=== PATIENT | female | born 1950 | race Caucasian/White ===

== ENCOUNTER 2018-07-31 12:42 | Emergency (ER) | payer BC, SELFPAY ==
[2018-07-31 13:00] VITALS: BP 131/88; PULSE 63; RESP 16; TEMP 36.2; O2SAT 95; BMI 38.0
--- NOTE | 2018-07-31 13:19 | ED_ITS ---
HPI - Arrhythmia/Palpitations General Chief Complaint: Arrhythmia/Palpitations Stated Complaint: THINKS IN AFIB Time Seen by Provider: 07/31/18 13:13 Source: patient Mode of arrival: ambulatory Limitations: no limitations History of Present Illness HPI narrative: Patient is a 67-year-old female who presents with sudden-onset dizziness. She said she was at work or at the store when she felt sudden onset dizziness she had some heart palpitations and some nausea. She went to the walk -in clinic and was sent to the ED for further evaluation. He says the dizziness is only when she stands up to move. Sitting and resting she feels okay. She has some trouble remembering things she was just at the walk-in clinic she can't really remember what he said. She says that she is having difficulty getting words out although she is speaking fluently now. She has no unilateral weakness no visual changes no facial drooping no slurring of speech. Related Data Home Medications Medication Instructions Recorded Confirmed ibuprofen 800 mg PO BID PRN 07/31/18 07/31/18 Previous Rx's Medication Instructions Recorded meclizine 25 mg PO BID-TID PRN #10 tab 07/31/18 ondansetron HCl [Zofran] 4 mg PO Q6-8H PRN #10 tab 07/31/18 Allergies Allergy/AdvReac Type Severity Reaction Status Date / Time meperidine [From Demerol] Allergy Severe stopped Verified 07/31/18 13:28 breathing Sulfa (Sulfonamide Allergy Severe Rash Verified 07/31/18 13:28 Antibiotics) Review of Systems Review of Systems All systems reviewed & are unremarkable except as noted in HPI and below Constitutional Denies chills, Denies fever(s), Denies lethargy and Denies weakness ENT Ears, Nose, Mouth, and Throat: Reports vertigo and Reports dizziness Cardiovascular Denies chest pain, Denies irregular heart rhythm, Reports lightheadedness, Reports palpitations, Denies dyspnea, Denies dyspnea on exertion and Denies orthopnea Respiratory Denies cough, Denies dyspnea, Denies dyspnea on exertion and Denies wheezing Gastrointestinal Gastrointestinal: Denies abdominal pain, Denies change in bowel habits, Denies diarrhea, Denies nausea and Denies vomiting Musculoskeletal Denies back pain, Denies muscle weakness, Denies numbness and Denies tingling Integumentary/Breasts Denies pruritus, Denies erythema, Denies rash and Denies wounds Neurologic Reports vertigo, Reports dizziness, Denies numbness, Denies tingling and Denies weakness Endocrine Reports palpitations Allergic/Immunologic Denies wheezing [facility] Social History Smoking Status: Never smoker Exam Initial Vital Signs Initial Vital Signs: Vital Signs Temperature 97.2 F L 07/31/18 13:00 Pulse Rate 63 07/31/18 13:00 Respiratory Rate 16 07/31/18 13:00 Blood Pressure 131/88 07/31/18 13:00 Pulse Oximetry 95 07/31/18 13:00 GENERAL: Well-appearing, well-nourished and in no acute distress. HEENT: Head atraumatic,EOMI, pupils reactive, face symmetric, CARDIOVASCULAR: Regular rate and rhythm without murmurs, rubs or gallops. RESPIRATORY: Breath sounds equal bilaterally, no wheezes rales or rhonchi. ABDOMEN: Soft, nontender. Normoactive bowel sounds all 4 quadrants. No guarding or rebound. EXTREMITIES: Normal range of motion, no clubbing or edema. Neurovascularly intact. Mild pain in left thigh but full range of motion at hip and knee no sign of trauma strong distal pedal pulse NEUROLOGICAL: Alert and oriented x4.Normal gait and speech. Cranial nerves II through XII grossly intact. Good plqtge-[id number], good kpoj-nk-[id number], strength equal bilaterally, no dysarthria or aphasia, sensation in tact to soft touch bilaterally, no visual changes, no facial droop, no dysarthria and no aphasia SKIN: Warm, dry, no laceration, no petechiae, no rashes or lesions. Scores NIH Stroke Scale Level of Conciousness: Alert, keenly responsive Ask month/age: Answers both questions correctly. Open/close eyes, close hand: Performs both tasks correctly Best gaze horizontal: Normal Visual porter: No visual loss Facial palsy: Normal symetrical movement Left arm drift: No drift for full 10 sec Right arm drift: No drift for full 10 sec Left leg drift: No drift for full 10 sec Right leg drift: No drift for full 10 sec Limb ataxia: Absent Sensory on face/arms/legs: Normal, no sensory loss Best language: No aphasia, normal Dysarthria: Normal Extinction or inattention: No abnormality Total NIH Stroke scale score: 0 Course Orders Ordered: ED Orders 09/11/18 13:23 Complete Blood Count AUTO DIFF Stat Comprehensive Metabolic Panel Stat Troponin & CK Cardiac Panel Stat 07/31/18 13:34 CT head/brain wo con Stat 07/31/18 15:50 Urine Microscopic Stat 07/31/18 15:54 CT angio head and neck Stat Sodium Chloride (Normal Saline 0.9%) 1,000 mls @ 150 mls/hr IV CONT BR[place] Last Infusion: 07/31/18 15:47 Dose: 0 mls/hr Admin: 07/31/18 14:47 Dose: 150 mls/hr Discontinued Medications Aspirin (Aspirin) 325 mg PO NOW ONE Stop: 07/31/18 13:20 Last Admin: 07/31/18 14:49 Dose: 325 mg Ketorolac Tromethamine (Toradol) 30 mg IV NOW ONE Stop: 07/31/18 14:40 Last Admin: 07/31/18 14:48 Dose: 30 mg Meclizine HCl (Antivert) 25 mg PO NOW ONE Stop: 07/31/18 13:20 Last Admin: 07/31/18 14:49 Dose: 25 mg Ondansetron HCl (Zofran) 4 mg IV NOW ONE Stop: 07/31/18 13:20 Last Admin: 07/31/18 14:48 Dose: 4 mg Vital Signs - 8 hr 07/31/18 13:00 07/31/18 13:23 07/31/18 14:30 Temperature 97.2 F L 97.2 F L Pulse Rate 63 63 58 L Respiratory Rate 16 16 17 Blood Pressure 131/88 Blood Pressure [Left Arm] 131/93 H 139/78 Pulse Oximetry 95 95 97 07/31/18 16:00 07/31/18 17:18 Temperature Pulse Rate 55 L Respiratory Rate 18 Blood Pressure Blood Pressure [Left Arm] 135/54 L 120/62 Pulse Oximetry 96 MDM - Arrhythmia/Palpitations Lab Data Attestation: I reviewed the patient's lab results. Result diagrams: 07/31/18 13:23 07/31/18 13:23 Lab Results 07/31/18 07/31/18 07/31/18 Range/Units 13:23 13:23 15:50 WBC 10.0 (4.5-11.0) X10^3/uL RBC 5.17 (4.0-5.2) X10^6/uL Hgb 15.5 (12.0-16.0) g/dL Hct 45.0 (36-46) % MCV 87.0 (80-100) fL MCH 29.9 (26-34) PG MCHC 34.4 (30-36) % RDW 13.7 (11.6-14.8) % Plt Count 232 (150-400) X10^3/uL Neut % (Auto) 74.4 (50-75) % Lymph % (Auto) 15.4 L (25-40) % Ball[place] % (Auto) 7.6 (3-14) % Eos % (Auto) 1.2 L (2-4) % Baso % (Auto) 1.4 (0-2) % Neut # (Auto) 7400 H (7227-6760) /uL Sodium 146 H (137-145) mmol/L Potassium 4.2 (3.4-5.1) mmol/L Chloride 104 (98-107) mmol/L Carbon Dioxide 30 (22-32) mmol/L BUN 20 H (7-17) mg/dL Creatinine 1.00 (0.52-1.04) mg/dL Estimated GFR 55.5 L (>60) mL/min BUN/Creatinine Ratio 20.0 (6-22) Glucose 105 (80-110) mg/dL Calcium 9.5 (8.4-10.2) mg/dL Total Bilirubin 1.1 (0.2-1.3) mg/dL AST 29 (14-36) IU/L ALT 26 (9-52) IU/L Alkaline Phosphatase 87 (38-126) U/L Total Creatine Kinase 139 H (30-135) U/L CK-MB (CK-2) 3.40 H (<2.37) ng/mL CK-MB (CK-2) Rel Index 2.4 (1.5-5.0) % Troponin I < 0.012 (0.01-0.034) ng/mL Total Protein 7.7 (6.3-8.2) g/dL Albumin 4.5 (3.5-5.0) g/dL Globulin 3.2 (1.7-4.1) g/dL Albumin/Globulin Ratio 1.4 (1.0-2.8) Urine RBC None seen (0-5/HPF) Urine WBC 0-1/hpf (0-5/HPF) Ur Squamous Epith Cells 0-1 /hpf Urine Bacteria None seen (None) Ur Culture Indicated? Not Reportable Micro UA Comment Not Reportable Urine Dip Bedside Urine Glucose Negative Bedside Urine Bilirubin - Negative Bedside Urine Ketone +/- 5 Urine Specific Hope 1.025 Bedside Urine Occult Blood - Negative Bedside Urine pH 6.0 Bedside Urine Protein +/- 15 Bedside Urine Urobilinogen +/- 1mg Bedside Urine Nitrite - Negative Bedside Urine Leukocytes - Negative Esterase Imaging Data CT scan - abdomen: Radiologist's impression: PROCEDURE: CT HEAD/BRAIN WO CON INDICATIONS: dizzy confusion TECHNIQUE: Noncontrast 4.5 mm thick angled axial sections acquired from the foramen magnum to the vertex, with coronal and sagittal reformats. For radiation dose reduction, the following was used: automated exposure control, adjustment of mA and/or kV according to patient size. COMPARISON: None. FINDINGS: Image quality: Excellent. CSF spaces: Basal cisterns are patent. No extra-axial fluid collections. The ventricles are symmetric in size and shape. Brain: No intracranial bleeds or masses. There is cerebral volume loss for age , with resultant ventricular and sulcal prominence. There are periventricular and deep white matter chronic small vessel ischemic changes. There is intracranial internal carotid artery atherosclerosis. Skull and face: Calvarium and visualized facial bones appear intact, without suspicious lesions. Sinuses: Visualized sinuses and mastoids are clear. IMPRESSION: Unremarkable imaging examination for age. No acute intracranial hemorrhage. No noncontrast CT findings of acute stroke are seen. Dictated by: Syed Adames M.D. on 07/31/2018 at 12:43 CTA Head: Radiologist's impression: PROCEDURE: CT ANGIO HEAD AND NECK INDICATIONS: persistant dizzy TECHNIQUE: Pre-contrast 4.5 mm thick sections acquired from the foramen magnum to the vertex. After the administration of intravenous contrast, 1 mm thick sections acquired from the aortic arch through the [place]. Post-contrast 4.5 mm thick sections then re- acquired from the foramen magnum to the vertex. 3-dimensional maximum-intensity- projection (MIP) and/or volume rendering reformats were acquired of the central intracranial vasculature and neck separately. COMPARISON: [facility], CT, CT HEAD/BRAIN WO CON, 07/31/2018, 13:27. FINDINGS: Image quality: Excellent. BRAIN: CSF spaces: Ventricles are normal in size and shape. Basal cisterns are patent. No extra-axial fluid collections. Brain: No midline shift. No intracranial bleeds or masses. Pope-white matter interface appears intact. Small air locules noted in the anterior and right margin of the prepontine cistern likely represents air in the vein. Skull and face: Calvarium and facial bones appear intact, without suspicious lesions. Orbits appear normal. Sinuses: Mucosal thickening noted in the floor of the right maxillary sinus. The mastoids are clear. HEAD CT ANGIOGRAPHY: Anterior circulation: Intracranial internal carotid arteries are normal in size and flow. The flow within the paired anterior cerebral arteries is normal and symmetric. The flow within the middle cerebral arteries is normal and symmetric. The anterior communicating artery is seen. No aneurysms are seen. Posterior circulation: Visualized portions of the vertebral arteries demonstrate normal caliber, and join to form a normal appearing basilar artery. Flow within the posterior cerebral arteries is normal and symmetric. No aneurysms are seen. NECK CT ANGIOGRAPHY: Carotid system: The great vessels demonstrate a conventional anatomy as they arise from the aortic arch. The origins of the common carotid arteries appear patent. The common carotid arteries demonstrate normal caliber and courses. Atherosclerotic calcifications noted in the origins of the internal carotid arteries which causes less than 50 % stenosis of the vessels. Posterior circulation: The origins of the vertebral arteries both appear widely patent. The more superior extracranial portions of both vertebral arteries also demonstrate normal courses and calibers. They join to form a normal appearing basilar artery. Soft tissues: Visualized neck soft tissues demonstrate no suspicious abnormalities. Thin-walled, 1.3 cm cyst noted in the apex of the left lung. 2.3 cm partially calcified hypoattenuating nodule noted in left lobe of thyroid gland. 1 cm partially calcified nodule noted in the right lobe of the thyroid gland. Bones: No suspicious bony lesions. Spine degenerative disc disease and facet arthropathy. Visualized cervical spine appears normally aligned. IMPRESSION: 1. No acute intracranial disease process. 2. No large vessel occlusion, hemodynamically significant stenosis, dissection or cerebral aneurysm. 3. Thyroid nodules. Recommend thyroid ultrasound for definitive characterization. Any quantitative measurements of stenosis were performed using NASCET criteria. Dictated by: Jennifer Segura MD, PhD on 07/31/2018 at 16:37 ECG Data Attestation: I personally reviewed and interpreted this ECG as follows: Prior ECG tracings: not available for review Interpretation: Normal sinus rhythm rate 59 T-wave inversion noted in lead [address] elevations no priors to compare left anterior fascicular block MDM Narrative Medical decision making narrative: Patient was ambulatory to the restroom she felt extremely dizzy and better when she down. This is similar to of benign paroxysmal positional vertigo however patient is still symptomatic. Will get CTA. CTA is negative think symptoms are consistent with vertigo. Patient overall feels a little bit better all. Discharge Plan Departure Patient Disposition: Home Clinical Impression: Benign paroxysmal positional vertigo Discharge Date/Time: 07/31/18 17:29 Instructions: DI for Benign Paroxysmal Positional Vertigo Activity Restrictions/Additional Instructions: *You have been diagnosed with benign paroxysmal positional vertigo *What to do: Dizziness should improve, of sleep rest, drink fluids, if no improvement may need to see a specialist ENT physician *Continue to take medications as directed fax to [facility] in [place] Meclizine 2-3 times daily if needed for dizziness Zofran 4 mg every 6 8 hr as needed for nausea vomiting *Follow up with your primary care provider in 2-3 days *Return to ER if you should have worsening dizziness, weakness, difficulty speaking, facial droop, inability to walk or any new, worsening or concerning symptoms Prescriptions: New ondansetron HCl [Zofran] 4 mg tablet 4 mg PO Q6-8H PRN (Reason: nausea and vomiting) Qty: 10 RF: 0 meclizine 25 mg tablet 25 mg PO BID-TID PRN (Reason: dizziness) Qty: 10 RF: 0 No Action ibuprofen 800 mg Tablet 800 mg PO BID PRN (Reason: arthritis pain) RF: 0 Referrals: Kaitlynn [place] PA-C [Primary Care Provider] -
[2018-07-31 13:23] VITALS: BP 131/93; PULSE 63; RESP 16; TEMP 36.2; O2SAT 95
[2018-07-31 13:27] LABS: Add Manual Diff / Slide Review NO; Basophils Percent Auto 1.4 % (0-2); Eosinophils Percent Auto 1.2 % (2-4); Hemoglobin 15.5 g/dL (12.0-16.0); Lymphocytes Percent Auto 15.4 % (25-40); Mean Corpuscular HGB Conc 34.4 % (30-36); Mean Corpuscular Hemoglobin 29.9 PG (26-34); Monocytes Percent Auto 7.6 % (3-14); Neutrophils Absolute Auto 7400 /uL (3000-5900); Neutrophils Percent Auto 74.4 % (50-75); Platelet Count 232 X10^3/uL (150-400); Red Blood Cell Count 5.17 X10^6/uL (4.0-5.2); Red Cell Distribution Width 13.7 % (11.6-14.8)
[2018-07-31 13:32] LABS: Alanine Aminotransferase 26 IU/L (9-52); Albumin 4.5 g/dL (3.5-5.0); Albumin Globulin Ratio 1.4 (1.0-2.8); Alkaline Phosphatase 87 U/L (38-126); Aspartate Aminotransferase 29 IU/L (14-36); Bilirubin Total 1.1 mg/dL (0.2-1.3); Blood Urea Nitrogen 20 mg/dL (7-17); Calcium 9.5 mg/dL (8.4-10.2); Carbon Dioxide 30 mmol/L (22-32); Chloride 104 mmol/L (98-107); Creatine Kinase 139 U/L (30-135); Estimated Glomerular Filt Rate 55.5 mL/min (>60); Globulin 3.2 g/dL (1.7-4.1); Glucose 105 mg/dL (80-110); Potassium 4.2 mmol/L (3.4-5.1); Sodium 146 mmol/L (137-145); Total Protein 7.7 g/dL (6.3-8.2)
[2018-07-31 13:33] LABS: HEMOLYSIS 60 (0-50)
--- NOTE | 2018-07-31 13:34 | DI.CT.S_ITS ---
PROCEDURE: CT HEAD/BRAIN WO CON INDICATIONS: dizzy confusion TECHNIQUE: Noncontrast 4.5 mm thick angled axial sections acquired from the foramen magnum to the vertex, with coronal and sagittal reformats. For radiation dose reduction, the following was used: automated exposure control, adjustment of mA and/or kV according to patient size. COMPARISON: None. FINDINGS: Image quality: Excellent. CSF spaces: Basal cisterns are patent. No extra-axial fluid collections. The ventricles are symmetric in size and shape. Brain: No intracranial bleeds or masses. There is cerebral volume loss for age, with resultant ventricular and sulcal prominence. There are periventricular and deep white matter chronic small vessel ischemic changes. There is intracranial internal carotid artery atherosclerosis. Skull and face: Calvarium and visualized facial bones appear intact, without suspicious lesions. Sinuses: Visualized sinuses and mastoids are clear. IMPRESSION: Unremarkable imaging examination for age. No acute intracranial hemorrhage. No noncontrast CT findings of acute stroke are seen. Dictated by: Syed Adames M.D. on 07/31/2018 at 12:43 Approved by: Syed Adames M.D. on 07/31/2018 at 12:45
[2018-07-31 13:47] LABS: CKMB % Relative Index 2.4 % (1.5-5.0)
[2018-07-31 13:51] LABS: Troponin I < 0.012 ng/mL (0.01-0.034)
[2018-07-31 14:30] VITALS: BP 139/78; PULSE 58; RESP 17; O2SAT 97
[2018-07-31] MEDS: SODIUM CHLORIDE 0.9% 1,000 ML 150 ML IV (14:47)
[2018-07-31] MEDS: ONDANSETRON 4 MG/2 ML INJ IV (14:48)
[2018-07-31] MEDS: KETOROLAC 60 MG/2 ML VIAL 30 MG IV (14:48)
[2018-07-31] MEDS: ASPIRIN 325 MG TABLET PO (14:49)
[2018-07-31] MEDS: MECLIZINE HCL 12.5 MG TABLET 25 MG PO (14:49)
--- NOTE | 2018-07-31 15:49 | PC.NURSE ---
Patient dizzy with ambulation;
--- NOTE | 2018-07-31 15:54 | DI.CT.S_ITS ---
PROCEDURE: CT ANGIO HEAD AND NECK INDICATIONS: persistant dizzy TECHNIQUE: Pre-contrast 4.5 mm thick sections acquired from the foramen magnum to the vertex. After the administration of intravenous contrast, 1 mm thick sections acquired from the aortic arch through the [place] of [place]. Post-contrast 4.5 mm thick sections then re-acquired from the foramen magnum to the vertex. 3-dimensional jmuyolx-lijqtqffq-bcxpfvethe (MIP) and/or volume rendering reformats were acquired of the central intracranial vasculature and neck separately. COMPARISON: [facility], CT, CT HEAD/BRAIN WO CON, 07/31/2018, 13:27. FINDINGS: Image quality: Excellent. BRAIN: CSF spaces: Ventricles are normal in size and shape. Basal cisterns are patent. No extra-axial fluid collections. Brain: No midline shift. No intracranial bleeds or masses. Pope-white matter interface appears intact. Small air locules noted in the anterior and right margin of the prepontine cistern likely represents air in the vein. Skull and face: Calvarium and facial bones appear intact, without suspicious lesions. Orbits appear normal. Sinuses: Mucosal thickening noted in the floor of the right maxillary sinus. The mastoids are clear. HEAD CT ANGIOGRAPHY: Anterior circulation: Intracranial internal carotid arteries are normal in size and flow. The flow within the paired anterior cerebral arteries is normal and symmetric. The flow within the middle cerebral arteries is normal and symmetric. The anterior communicating artery is seen. No aneurysms are seen. Posterior circulation: Visualized portions of the vertebral arteries demonstrate normal caliber, and join to form a normal appearing basilar artery. Flow within the posterior cerebral arteries is normal and symmetric. No aneurysms are seen. NECK CT ANGIOGRAPHY: Carotid system: The great vessels demonstrate a conventional anatomy as they arise from the aortic arch. The origins of the common carotid arteries appear patent. The common carotid arteries demonstrate normal caliber and courses. Atherosclerotic calcifications noted in the origins of the internal carotid arteries which causes less than 50% stenosis of the vessels. Posterior circulation: The origins of the vertebral arteries both appear widely patent. The more superior extracranial portions of both vertebral arteries also demonstrate normal courses and calibers. They join to form a normal appearing basilar artery. Soft tissues: Visualized neck soft tissues demonstrate no suspicious abnormalities. Thin-walled, 1.3 cm cyst noted in the apex of the left lung. 2.3 cm partially calcified hypoattenuating nodule noted in left lobe of thyroid gland. 1 cm partially calcified nodule noted in the right lobe of the thyroid gland. Bones: No suspicious bony lesions. Spine degenerative disc disease and facet arthropathy. Visualized cervical spine appears normally aligned. IMPRESSION: 1. No acute intracranial disease process. 2. No large vessel occlusion, hemodynamically significant stenosis, dissection or cerebral aneurysm. 3. Thyroid nodules. Recommend thyroid ultrasound for definitive characterization. Any quantitative measurements of stenosis were performed using NASCET criteria. Dictated by: Jennifer Segura MD, PhD on 07/31/2018 at 16:37 Approved by: Jennifer Segura MD, PhD on 07/31/2018 at 16:48
[2018-07-31 16:00] VITALS: BP 135/54; RESP 18
[2018-07-31 16:22] LABS: Bacteria Urine None Seen; RBC Urine None Seen (0-5/HPF)
[2018-07-31 16:23] LABS: Squamous Epithelial Cell Urine 0-1 /HPF; WBC Urine 0-1/HPF (0-5/HPF)
--- NOTE | 2018-07-31 17:11 | PC.NURSE ---
No sensation deficit noted; Patient with sudden on-set of dizziness, weakness, and trouble concentrating
[2018-07-31 17:18] VITALS: BP 120/62; PULSE 55; O2SAT 96
== END 2018-07-31 17:29 | disposition home or self-care (01) ==
PROVIDERS: Emergency Provider Emergency Medicine; PCP Physician Assistant
DX: H81.10 Benign paroxysmal vertigo, unspecified ear (principal); R00.2 Palpitations
CPT/HCPCS: 70450; 70496; 70498; 80053; 81003; 81015; 82550; 82553; 84484; 85025; 93005; 93010; 96361; 96374; 96375; 99283; 99285; 99291; J1885; J2405; Q9967

== ENCOUNTER 2022-11-07 16:31 | Emergency (ER) | payer MEDICARE, SELFPAY ==
[2022-11-07 16:44] VITALS: BP 181/102; PULSE 55; RESP 18; TEMP 36.4; O2SAT 99; BMI 35.7
--- NOTE | 2022-11-07 16:48 | DI.RAD.S_ITS ---
PROCEDURE: XR KNEE RT 3V INDICATIONS: pain, no trauma TECHNIQUE: 3 views of the knee were acquired. COMPARISON: None. FINDINGS: Bones: No fractures or dislocations. Tricompartmental joint space narrowing and osteophytosis most pronounced in the medial compartment. No suspicious bony lesions. Soft tissues: Small joint effusion. No suspicious soft tissue calcifications. IMPRESSION: Severe right knee DJD. Dictated by: Apolinar Delgado M.D. on 11/07/2022 at 17:31 Approved by: Apolinar Delgado M.D. on 11/07/2022 at 17:32
[2022-11-07 19:33] VITALS: BP 189/86; PULSE 52; RESP 18; TEMP 36.7; O2SAT 99
--- NOTE | 2022-11-07 19:42 | ED.EXTPRO ---
HPI - Extremity Problem General Chief complaint: Extremity Problem,Nontraumatic Stated complaint: R Knee pain, unknown cause Time Seen by Provider: 11/07/22 19:34 Source: patient Mode of arrival: Wheelchair Limitations: no limitations History of Present Illness HPI Narrative: 71-year-old female with a known history of arthritis who is here for evaluation of right knee pain and swelling. She states that it started 3 days ago. She was sitting for an extended period of time and when she went to stand up her right knee had some fairly intense discomfort. She has been trying some ibuprofen without much improvement. No skin rashes over the area. She has had gout in the past but this feels different from that. She has been using a walker at home Related Data Home Medications Medication Instructions Recorded Confirmed ibuprofen 800 mg tablet 800 mg PO Q8H 08/23/20 08/23/20 magnesium salicylate (Percogesic 580 mg PO Q6H PRN 08/23/20 08/23/20 Backache Relief) Previous Rx's Medication Instructions Recorded methocarbamol 500 mg tablet 500 mg PO QID PRN muscle spasm #14 08/23/20 tabs hydrocodone 5 mg-acetaminophen 325 1 tab PO Q8H PRN pain #14 tabs 11/07/22 mg tablet Allergies Allergy/AdvReac Type Severity Reaction Status Date / Time meperidine [From Demerol] Allergy Severe stopped Verified 11/07/22 16:44 breathing Sulfa (Sulfonamide Allergy Severe Rash Verified 11/07/22 16:44 Antibiotics) Review of Systems Constitutional Constitutional: Reports system reviewed and no additional complaints, except as documented Musculoskeletal Musculoskeletal: Reports system reviewed and no additional complaints, except as documented Integumentary/Breasts Skin/Breast: Reports system reviewed and no additional complaints, except as documented Neurologic Neurologic: Reports system reviewed and no additional complaints, except as documented Hematologic/Lymphatic On Anticoagulants: No Patient History Social History Smoking Status: Never smoker Smoking Status: Never smoker Substance Use Type: does not use Exam Initial Vital Signs Initial Vital Signs: Vital Signs Temperature 97.5 F L 11/07/22 16:44 Pulse Rate 55 L 11/07/22 16:44 Respiratory Rate 18 11/07/22 16:44 Blood Pressure 181/102 H 11/07/22 16:44 Pulse Oximetry 99 11/07/22 16:44 Oxygen Delivery Method 11/07/22 16:44 Skin General: no rashes or lesions noted Neuro General: patient alert and patient awake Sensory Exam: no sensory deficits noted Extrem Other: Patient does have a right knee effusion. She has tenderness throughout the right knee but specifically along the mediolateral joint line and anteriorly. Course Orders Ordered: ED Orders 11/07/22 16:48 Consult to [employer] - Office Administrative Assistant Stat XR knee RT 3V Stat Discontinued Medications Hydrocodone Bitart/Acetaminophen (Hydrocodone/Acet 5/325 Prepack) 1 bottle MISC SEEINSTR ONE Stop: 11/07/22 19:43 Last Admin: 11/07/22 19:57 Dose: 1 bottle Documented By: CTS Vital Signs Vital signs: Vital Signs - 8 hr 11/07/22 16:44 11/07/22 19:33 Temperature 97.5 F L 98.1 F Pulse Rate 55 L 52 L Respiratory Rate 18 18 Blood Pressure 181/102 H 189/86 H Pulse Oximetry 99 99 Oxygen Delivery Method Room Air Room Air MDM - Extremity (Nontraumatic) Imaging Data Extremity x-ray #1: Radiologist's Impression: [place] [address] XRay Report Signed Patient: Dory Buckley MR#: [id number] : 1950 Acct:[id number] Age/Sex: 71 / F Date of Service: 11/07/22 Loc: ED Accession Number: [id number] ?? Procedure: XR knee RT 3V Ordering Provider: Paula Myers D.O. PROCEDURE:? XR KNEE RT 3V ? INDICATIONS:? pain, no trauma ? TECHNIQUE:? 3 views of the knee were acquired.? ? COMPARISON:? None. ? FINDINGS:? ? Bones:? No fractures or dislocations.? Tricompartmental joint space narrowing and osteophytosis most pronounced in the medial compartment.? No suspicious bony lesions.? ? Soft tissues:? Small joint effusion.? No suspicious soft tissue calcifications.? ? ? IMPRESSION:? Severe right knee DJD. ? ? Dictated by: Apolinar Delgado M.D. on 11/07/2022 at 17:31 ? ? Approved by: Apolinar Delgado M.D. on 11/07/2022 at 17:32?? MDM Narrative Medical decision making narrative: The x-ray shows no signs of fracture or dislocation. Her presenting symptoms are not consistent with an infection/gout. I do suspect that this is an arthritis flare. We discussed conservative measures that she can try at home to try to help with the symptoms. Was sent home with pain medication. She was given return precautions. She expressed understanding and agreement. Discharge Plan Departure Patient Disposition: Home Clinical Impression: Arthritis Instructions: DI for Arthritis Activity Restrictions/Additional Instructions: I do recommend that you continue to do the conservative measures that you happened doing to include keeping it elevated. Using ice. And also using anti-inflammatories to include Tylenol. Prescriptions: New hydrocodone-acetaminophen 5-325 mg tablet 1 tab PO Q8H PRN (Reason: pain) Qty: 14 0RF No Action Percogesic Backache Relief 580 (467) mg tablet 580 mg PO Q6H PRN ibuprofen 800 mg tablet 800 mg PO Q8H methocarbamol 500 mg tablet 500 mg PO QID PRN (Reason: muscle spasm) Qty: 14 0RF Visit Report Forms: Patient Portal/API
[2022-11-07] MEDS: HYDROCODONE/ACET 5/325 PREPACK 1 BOTTLE MISC (19:57)
== END 2022-11-07 19:59 | disposition home or self-care (01) ==
PROVIDERS: Emergency Provider Emergency Medicine
DX: M17.11 Unilateral primary osteoarthritis, right knee (principal)
CPT/HCPCS: 73562; 99283